=== PATIENT | male | born 1950 | race Caucasian/White ===

== ENCOUNTER → 2022-11-15 | Outpatient (REF) | payer MEDICARE | LOC: EEVIPCON 14:16 → M SFHCDERM 14:16 | PROVIDERS: ATTEND Dermatology | DX: L08.9 Local infection of the skin and subcutaneous tissue, unspecified (principal) ==

== ENCOUNTER → 2022-11-19 | Outpatient (REF) | payer MEDICARE | LOC: M SFHCDERM 16:51 | PROVIDERS: ATTEND Dermatology | DX: Z51.89 Encounter for other specified aftercare (principal) ==